=== PATIENT | male | born 1955 | race Caucasian/White ===

== ENCOUNTER → 2019-12-20 | Outpatient (CLI) | payer OTHER ==
--- NOTE | 2019-12-20 17:22 | RAD ---
DEXA scan 12/20/2019 Clinical History: Osteoporosis. Technique: DEXA of the lumbar spine and right hip was performed. FINDINGS: No previous studies are available for comparison. The bone mineral density of the lumbar spine is 1.212 g/cm2 which corresponds with a T-score of -0.1 . This is consistent within normal limits. The mean bone mineral density of the right hip is 1.000 g/sq cm. This corresponds to a T score of -0.3 . This is consistent with within normal limits. By [employer] on Osteoporosis criteria, a T score of 0 to-1 SD is considered to be within normal limits. A T score of -1 to -2.5 SD is considered osteopenia. A T score less than -2.5 SD is considered osteoporosis Impression: The patient's mean bone mineral densities are within normal limits. Electronically signed by: Alonzo Fish MD (12/20/2019 5:19 PM) [facility] [place]
== END ==
LOC: DXRAD 12:34
PROVIDERS: ATTEND Internal Medicine
DX: M25.551 Pain in right hip (principal); M25.552 Pain in left hip
CPT/HCPCS: 77080